=== PATIENT | male | born 1975 | race Caucasian/White ===

== ENCOUNTER 2018-08-27 20:29 | Emergency (ER) | payer MEDICAID ==
[~2018-08-27] VITALS: Ht 180.3 cm; Wt 68.0 kg
[2018-08-28] MEDS ORDERED: KETOROLAC 30MG/ML VIAL IV STA (00:01)
[2018-08-28] MEDS ORDERED: SODIUM CHLORIDE 0.9% 1,000 ML IV ONE (00:01)
[2018-08-28 00:43] LABS: HEMATOCRIT. 46.1 % (42.0-52.0); HEMOGLOBIN. 16.3 g/dL (14.0-18.0); MEAN CORPUSCULAR HEMOGLOBIN 34.7 pg (28.0-32.0); MEAN CORPUSCULAR VOLUME 98.3 fL (80.0-94.0); MEAN PLATELET VOLUME 8.2 fl (7.4-10.4); PLATELET 214 x1000/uL (130-400); RED BLOOD CELL COUNT 4.68 mill/uL (4.7-6.1); RED CELL DISTRIBUTION WIDTH 12.8 % (11.6-14.6)
[2018-08-28 00:49] LABS: CHLORIDE 103 mEq/L (98-107)
[2018-08-28 00:52] LABS: ETHANOL BLOOD < 10 mg/dL
[2018-08-28 03:26] LABS: ATYPICAL LYMPHOCYTES 2; PLATELET ESTIMATE NORMAL
[2018-08-28 08:13] VITALS: BP 128/73
== END 2018-08-28 08:40 | disposition home or self-care (01) ==
LOC: ER 20:29
DX: R07.89 Other chest pain (principal); F17.200 Nicotine dependence, unspecified, uncomplicated; E11.9 Type 2 diabetes mellitus without complications; Z88.5 Allergy status to narcotic agent; Z88.6 Allergy status to analgesic agent; Z88.8 Allergy status to other drugs, medicaments and biological substances
CPT/HCPCS: 36415; 71045; 80053; 80320; 83880; 84484; 85025; 93005; 96361; 96374; 99284; J1885; J7030; J7042; Z7610; G0480

== ENCOUNTER 2019-03-24 06:07 | Emergency (ER) | payer MEDICAID, OTHER ==
[~2019-03-24] VITALS: Ht 182.9 cm; Wt 82.0 kg
[2019-03-24] MEDS ORDERED: IBUPROFEN 600MG TABLET PO ONE (06:45)
[2019-03-24] MEDS ORDERED: BACITRACIN ZINC OINT UDPKT TOP ONE (09:45)
[2019-03-24 09:56] VITALS: BP 142/86
== END 2019-03-24 09:51 | disposition home or self-care (01) ==
LOC: ER 06:07
DX: S00.01XA Abrasion of scalp, initial encounter (principal); S40.011A Contusion of right shoulder, initial encounter; E11.9 Type 2 diabetes mellitus without complications; Z88.5 Allergy status to narcotic agent; Z88.6 Allergy status to analgesic agent; V03.00XA Pedestrian on foot injured in collision with car, pick-up truck or van in nontraffic accident, initial encounter; Y93.89 Activity, other specified; Y92.481 Parking lot as the place of occurrence of the external cause
CPT/HCPCS: 99284